=== PATIENT | female | born 1955 | race Caucasian/White ===

== ENCOUNTER → 2024-02-20 | Outpatient (CLI) | payer MEDICARE, OTHER, SELFPAY ==
--- NOTE | 2024-02-20 09:22 | BI_ITS ---
MAMMOGRAPHY - BILATERAL DIAGNOSTIC REASON FOR EXAM: Female, 68 years old. Upper-outer quadrant pain of the left breast. PERTINENT HISTORY: Grandmother with breast cancer. Aunts with breast cancer. TECHNIQUE: Digital bilateral breast thanh (3D mammographic acquisition) in the CC and MLO projections. 2-D mediolateral oblique (MLO) and craniocaudad (CC) views of both breasts were obtained. CAD: Full Field Digital Mammography with Computer Added Detection was performed. COMPARISON: Comparison is made with prior outside examination of June 06, 2023. FINDINGS: Breast Composition: The breasts are extremely dense, which lowers the sensitivity of mammography. There is a 1.4 cm x 1.3 cm well-defined nodule in the upper medial aspect of the right breast. Correlation with ultrasound is recommended. No other significant abnormalities are identified. BI/DIAG MAMM W/CAD, BILAT IMPRESSION: Nodular density in the right breast as described. Correlation with ultrasound is recommended. With the patient''s history of left breast pain, targeted ultrasound examination recommended. ASSESSMENT CATEGORY: BIRADS Category 0: Incomplete. Need additional imaging evaluation. A letter regarding these results will be sent to the patient by the facility within 30 days. Approximately 10% of breast cancers are not detected by mammography. A normal mammogram should not delay biopsy of a clinically suspicious abnormality. Electronically Signed: Valente Link MD at 11:07 EDT ,
--- NOTE | 2024-02-20 09:22 | US_ITS ---
STUDY: ULTRASOUND BREAST - LEFT REASON FOR EXAM: Female, 68 years old. Left breast pain. TECHNIQUE: Axial and longitudinal images of the LEFT breast were performed with a high resolution ultrasound transducer. # OF IMAGES: 82 COMPARISON: Comparison is made with prior mammogram done earlier today. FINDINGS: LEFT Breast: The upper quadrant of the right breast was examined. Incidental note is made of a 5 mm x 7 mm x 3 mm benign-appearing lymph node at the 2:00 position a breast cyst 6 times from nipple. Dilated subareolar ducts. IMPRESSION: Incidental note is made of a 5 mm x 7 mm x 3 mm benign-appearing lymph node at the 2:00 posterior of the breast at 6 cm from the nipple. Dilated retroareolar ducts. ASSESSMENT CATEGORY: BIRADS Category 2: Benign. A letter regarding these results will be sent to the patient by the facility within 30 days. Electronically Signed: Valente Link MD at 12:14 EDT , STUDY: ULTRASOUND BREAST - RIGHT REASON FOR EXAM: Female, 68 years old. Abnormal screening mammogram. TECHNIQUE: Axial and longitudinal images of the RIGHT breast were performed with a high resolution ultrasound transducer. # OF IMAGES: 82 COMPARISON: Comparison is made with prior mammogram done earlier today. FINDINGS: RIGHT Breast: The upper outer quadrant of the right breast was examined with ultrasound. There is a 1 cm x 0.8 cm x 0.3 cm benign-appearing lymph node at the 10:00 position of the breast at 7 cm from the nipple. US/Breast Limited Unilateral IMPRESSION: 1 cm x 0.8 cm x 0.3 cm benign-appearing lymph node at the 10:00 position of the breast at 7 cm from the nipple. ASSESSMENT CATEGORY: BIRADS Category 2: Benign. A letter regarding these results will be sent to the patient by the facility within 30 days. Electronically Signed: Valente Link MD at 12:15 EDT ,
== END | disposition home or self-care (01) ==
LOC: OPBI 09:17
PROVIDERS: PCP Family Medicine; Referring Provider Nurse Practitioner Family; Visit Provider Nurse Practitioner Family
DX: N64.4 Mastodynia (principal)
CPT/HCPCS: 76642; 77062; 77066; G0279

== ENCOUNTER → 2024-07-21 | Outpatient (CLI) | payer MEDICARE, OTHER, SELFPAY ==
--- NOTE | 2024-07-21 16:03 | CT_ITS ---
EXAM: CT head without contrast. CLINICAL HISTORY: Right-sided otalgia for 1 month. 68-year-old female. COMPARISON: None available. TECHNIQUE: See below. FINDINGS: Plain CT evaluation of the head is performed. There is no evidence of cerebral hemorrhage or cerebral edema. No abnormal focal mass effect or hypodensity is seen in the brain. The ventricular system and cisterns are normal. There is no evidence of midline shift. Bilateral symmetric appearing cystic structures, measuring about 17 mm in diameter, are noted between the fornix and the thalamus. There is no evidence of subdural hematoma. No calvarial lesion is identified. Paranasal sinuses and mastoid air cells appear clear. 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 Reading Location: [place] [id number]
== END | disposition home or self-care (01) ==
LOC: CT 16:01
PROVIDERS: PCP Family Medicine; Referring Provider Family Medicine; Visit Provider Family Medicine
DX: H92.01 Otalgia, right ear (principal)
CPT/HCPCS: 70450